=== PATIENT | female | born 1980 | race Caucasian/White ===

== ENCOUNTER 2021-01-25 09:50 | Emergency (ER) | payer SELFPAY ==
[2021-01-25] VITALS (7 sets, daily range): BP systolic 107–143; BP diastolic 67–88; PULSE 58–79; RESP 16–20; TEMP 36.8; O2SAT 96–99
--- NOTE | 2021-01-25 10:12 | CT_ITS ---
WS: [id number] CT HEAD TECHNIQUE: Noncontrast CT of the head obtained from the skullbase to the vertex. CLINICAL INFORMATION: STROKE ALERT COMPARISON: MRI/MRA and CT January 01, 2016. CT May 2015 DLP: [id number] scans at [facility] use at least one of these dose optimization techniques: automat ed exposure control; mA and/or kV adjustment per patient size (includes targeted exams where dose is matched to clinical indication); or iterative reconstruction. FINDINGS: No evidence of intracranial hemorrhage or mass effect. Ventricular system and basal cisterns are morin nt. No extra-axial fluid collections. No evidence of mass or mass effect. Normal amezcua-white different iation. Minimal incidental slightly low-lying cerebellar tonsils. Normal fourth ventricle. Mucosal thickening in the ethmoid air cells. Mastoid air cells well aerated. CT/CT head wo con* [id number] IMPRESSION: 1. No evidence of intracranial hemorrhage or mass effect. 2. Normal amezcua-white differentiation. 3. Mild mucosal thickening in the ethmoid air cells. Notified Raquel Riojas MD at 01/25/2021 10:32 AM.
--- NOTE | 2021-01-25 10:25 | ECG_ITS ---
[facility] Test Date: 2021-01-25 Pat Name: Radha Bradford Department: Room: Gender: Female Hide Curer: : 1980 Requested By: Raquel Riojas Order Number: [id number] Sadaf MD: Bayron Guerrier M.D. Measurements Intervals [place] Rate: 71 P: 49 IL: 163 QRS: 94 QRSD: 104 T: 52 QT: 390 QTc: 424 Interpretive Statements SINUS RHYTHM BORDERLINE RIGHT AXIS DEVIATION [QRS AXIS > 90] INCOMPLETE RIGHT BUNDLE BRANCH BLOCK [90+ ms QRS DURATION, TERMINAL R IN V1/V2, 40+ ms S IN I/aVL/V4/V5/V6] Compared to ECG 04/08/2018 12:35:17 Incomplete right bundle-branch block now present Sinus bradycardia no longer present Electronically Signed On 01-25-2021 23:13:28 CDT by Bayron Guerrier M.D. [id number]
[2021-01-25 10:34] LABS: Basophils # 0.1 10^3/uL (0.0-0.1); Basophils % 0.5 %; Eosinophils # 0.1 10^3/uL (0.0-0.8); Eosinophils % 1.1 %; Hematocrit 42.3 % (37.0-47.0); Lymphocytes # 2.9 10^3/uL (0.8-4.8); Lymphocytes % 27.6 %; Mean Corpuscular HGB Conc 33.1 g/dL (30.0-36.0); Mean Corpuscular Hemoglobin 27.7 pg (28.0-34.0); Mean Corpuscular Volume 83.8 fL (81-99); Mean Platelet Volume 9.5 fL (7.4-10.4); Monocytes # 0.7 10^3/uL (0.2-0.9); Monocytes % 6.5 %; Neutrophils # 6.63 10^3/uL (1.8-7.7); Neutrophils % 63.7 %; Nucleated Red Blood Cells % 0 %; Platelet Count 284 10^3/cmm (130-400); Red Blood Count 5.05 10^6/uL (4.1-5.3); Red Cell Distribution Width 12.4 % (12.1-15.1); White Blood Count 10.4 10^3/uL (4.0-10.0)
[2021-01-25 10:45] LABS: INR 0.92 (0.8-1.2)
[2021-01-25 10:47] LABS: Alanine Aminotransferase 30 U/L (0-33); Albumin Level 4.6 g/dL (3.5-5.2); Alkaline Phosphatase 66 IU/L (35-105); Anion Gap 15.6 (5-19); Aspartate Amino Transferase 17 U/L (0-32); Blood Urea Nitrogen 13 mg/dL (6-20); Calcium 9.4 mg/dL (8.5-10.5); Carbon Dioxide 24 mmol/L (22-29); Chloride 101 mmol/L (98-107); Globulin 2.1 g/dL (1.3-4.6); Glomerular Filtration Rate 93.6 mL/min (90-130); Glucose 122 mg/dL (65-115); Magnesium 1.9 mg/dL (1.7-2.3); Osmolality Calculated 285 mOsm/kg (285-295); Potassium 3.6 mmol/L (3.5-5.1); Sodium 137 mmol/L (136-145); Total Bilirubin 0.2 mg/dL (0.15-1.2); Total Protein 6.7 g/dL (6.6-8.7)
[2021-01-25 10:48] LABS: Troponin T (5th) Once 6 ng/L (0-10)
--- NOTE | 2021-01-25 11:15 | ED_ITS ---
HPI - Weakness General: Chief complaint: Weakness Stated complaint: CP Time Seen by Provider: 01/25/21 10:08 Source: patient Mode of arrival: ambulatory Limitations: no limitations History of Present Illness: HPI Narrative: 40-year-old female complaining of chest pain, paresthesias of her face, left arm, nausea, and anxiety starting at around 9 AM this morning. She was driving at the time. She has had similar symptoms in the past, says that she was diagnosed with a TIA in 2010. No fever. No cough. No palpitations. No recent GI illness, medication change, or other event. She does have a lot of stress, and historically has had more symptoms when she is under stress. No recent head or neck trauma. No cervical spine findings strain, neck manipulation, or neck pain. No tinnitus. MD Complaint: generalized weakness, numbness and tingling Onset (ago): hour(s) Duration: intermittent Associated symptoms: Reports chest pain; Denies confusion, diaphoresis, dysuria, easy bruising, fever(s), headache(s), nausea or vomiting Review of Systems General: Reports: 10 or more systems reviewed and unremarkable except in HPI and below Const: Reports: fatigue; Denies: fever(s), chills, body aches, change in appetite, change in weight or diaphoresis Eyes: Denies: change in vision or blind spots ENMT: Denies: throat pain, uvular edema or odynophagia Card: Reports: chest pain and lightheadedness; Denies: palpitations, irregular heart rhythm, edema or swelling of feet/ankles Resp: Denies: dyspnea GI: Denies: nausea or vomiting : Denies: flank pain, difficulty voiding or dysuria Musc: Reports: extremity pain; Denies: neck pain, back pain or joint pain Skin/Breast: Denies: rash, pruritus or erythema Neuro: Reports: numbness in extremities, weakness in extremities, sensory changes and dizziness; Denies: headache(s), confusion, difficulty communicating thoughts, seizure-like activity or involuntary movements Psych: Reports: anxiety, depression and panic attacks Endo: Denies: polyuria, polydipsia or tired all the time Vitaly/Lymph: Denies: easy bruising or easy bleeding All/Imm: Denies: urticaria, throat swelling or tongue swelling PFSH ED PFSH: Medical History Chronic post-traumatic stress disorder Generalized anxiety disorder Major depressive disorder, recurrent, moderate Other stressful life events affecting family and household 18 yr old daughter moved out of home, estranged relationship now Social History Smoking and tobacco status: current every day smoker cigarettes Physical Exam Const: COMMON NORMALS: patient oriented x3, no limitations, alert and well nourished GENERAL APPEARANCE: cooperative, anxious and well hydrated; not in distress, not ill appearing and not frail appearing NUTRITIONAL APPEARANCE: overweight HENMT: COMMON NORMALS: Normal external nose present FACE & SINUS: normal facial exam and face symmetric NOSE: Normal external nose present MOUTH: Normal oral and palatal mucosa present and tongue normal; no audible dysphonia and no drooling THROAT: no uvular edema Eye: COMMON NORMALS: Equal, round and reactive pupils present, EOMs intact bilaterally, conjunctivae normal and no scleral icterus GENERAL EYE: appearance normal, both eyes and all related structures CONJUNCTIVA: Yes conjunctivae normal PUPIL: Yes Equal, round and reactive pupils present Neck/C-Spine: COMMON NORMALS: full ROM, no lymphadenopathy, supple and no JVD Lymph: LYMPHATIC: no lymphadenopathy noted Resp: COMMON NORMALS: normal respiratory effort and No use of accessory muscles EFFORT & INSPECTION: Yes able to speak in complete sentences, No tachypneic, No respiratory distress, No labored and No Actively coughing Cardio: COMMON NORMALS: no JVD, regular rate, regular rhythm, S1 normal heart sound present and S2 normal heart sound present JUGULAR VENOUS DISTENTION: JVD present RATE: regular rate RHYTHM: regular rhythm HEART SOUNDS: S1 normal heart sound present and S2 normal heart sound present GI: COMMON NORMALS: Normal to inspection, nondistended, normoactive bowel sounds present, Soft to palpation, non-tender and No hepatosplenomegaly present PALPATION: Yes Soft to palpation and Yes No hepatosplenomegaly present Neuro: COMMON NORMALS: patient oriented x3 SENSORIUM/ORIENTATION: Yes alert Psych: COMMON NORMALS: mental status grossly normal, Normal thought process present, cooperative, normal affect, speech normal and activity/motor behavior normal APPEARANCE: Yes grossly normal SPEECH: Yes normal speech THOUGHT PROCESS: Normal thought process present Skin: COMMON NORMALS: no rashes or lesions noted, no wounds and turgor normal GENERAL SKIN EXAM: no rashes or lesions noted and turgor normal Course Vital Signs: Vital signs: Vital Signs Temperature 98.2 F 01/25/21 10:02 Pulse Rate 63 01/25/21 13:25 Respiratory Rate 18 01/25/21 13:25 Blood Pressure 107/67 01/25/21 13:25 Pulse Oximetry 98 01/25/21 13:25 MDM - Weakness MDM Narrative: Medical decision making narrative: 40-year-old female with pare sthesias and pain of her face, left arm, chest since this morning at 9 AM. Symptoms are slowly improving. She has had similar symptoms in the past, No acute focal deficits on exam. Head CT negative for any acute abnormalities. Discussed findings with the radiologist, who was able to see prior MRI and MRA studies which were also normal. I do not find any mention of TIA in her medical records. I discussed the case with on-call neurologist at [facility], they agreed, no TPA would be indicated given her NIH score of 0-1, and resolution of symptoms. 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 Her lab work was unremarkable-electrolytes all stable. I will refer her to neurology for follow-up. She had no development of new symptoms or worsening of existing symptoms during the period of observation here in the ED. Lab Data: Labs: Lab Results 01/25/21 01/25/21 01/25/21 Range/Units 10:05 10:05 10:05 WBC 10.4 H (4.0-10.0) 10^3/ uL RBC 5.05 (4.1-5.3) 10^6/u L Hgb 14.0 (11.5-15.3) g/dL Hct 42.3 (37.0-47.0) % MCV 83.8 (81-99) fL MCH 27.7 L (28.0-34.0) pg MCHC 33.1 (30.0-36.0) g/dL RDW 12.4 (12.1-15.1) % Plt Count 284 (130-400) 10^3/c mm MPV 9.5 (7.4-10.4) fL Neut % (Auto) 63.7 % Lymph % (Auto) 27.6 % [place] % (Auto) 6.5 % Eos % (Auto) 1.1 % Baso % (Auto) 0.5 % Neut # (Auto) 6.63 (1.8-7.7) 10^3/u L Lymph # (Auto) 2.9 (0.8-4.8) 10^3/u L [place] # (Auto) 0.7 (0.2-0.9) 10^3/u L Eos # (Auto) 0.1 (0.0-0.8) 10^3/u L Baso # (Auto) 0.1 (0.0-0.1) 10^3/u L Nucleated RBC % (a uto) 0 % Nucleated RBCs # 0.0 /100WBC PT 12.60 (12.1-14.9) SECO NDS INR 0.92 (0.8-1.2) Sodium 137 (136-145) mmol/L Potassium 3.6 (3.5-5.1) mmol/L Chloride 101 (98-107) mmol/L Carbon Dioxide 24 (22-29) mmol/L Anion Gap 15.6 (5-19) BUN 13 (6-20) mg/dL Creatinine 0.7 (0.5-0.9) mg/dL GFR Calculation 93.6 (90-130) mL/min Glucose 122 H (65-115) mg/dL POC Glucose (70-110) mg/dL Calculated Osmolal ity 285 (285-295) mOsm/k g Calcium 9.4 (8.5-10.5) mg/dL Magnesium 1.9 (1.7-2.3) mg/dL Total Bilirubin 0.2 (0.15-1.2) mg/dL AST 17 (0-32) U/L ALT 30 (0-33) U/L Alkaline Phosphata se 66 (35-105) IU/L Troponin T Gen 5 n g/L (0-10) ng/L Total Protein 6.7 (6.6-8.7) g/dL Albumin 4.6 (3.5-5.2) g/dL Globulin 2.1 (1.3-4.6) g/dL Urine Color (Yellow) Urine Appearance (CLEAR) Urine pH (5-7) Ur Specific Gravit y (1.005-1.030) Urine Protein (Negative) Urine Glucose (UA) (Normal) Urine Ketones (Negative) Urine Blood (Negative) Urine Nitrate (Negative) Urine Bilirubin (Negative) Urine Urobilinogen (Negative) mg/dL Ur Leukocyte Zaria ase (Negative) Urine RBC (0-2) /hpf Urine WBC (0-5) /hpf Ur Squamous Epith Cells (0-5) /hpf Amorphous Sediment Urine Bacteria (NONE) /hpf 01/25/21 01/25/21 01/25/21 Range/Units 10:05 10:06 11:20 WBC (4.0-10.0) 10^3/ uL RBC (4.1-5.3) 10^6/u L Hgb (11.5-15.3) g/dL Hct (37.0-47.0) % MCV (81-99) fL MCH (28.0-34.0) pg MCHC (30.0-36.0) g/dL RDW (12.1-15.1) % Plt Count (130-400) 10^3/c mm MPV (7.4-10.4) fL Neut % (Auto) % Lymph % (Auto) % [place] % (Auto) % Eos % (Auto) % Baso % (Auto) % Neut # (Auto) (1.8-7.7) 10^3/u L Lymph # (Auto) (0.8-4.8) 10^3/u L [place] # (Auto) (0.2-0.9) 10^3/u L Eos # (Auto) (0.0-0.8) 10^3/u L Baso # (Auto) (0.0-0.1) 10^3/u L Nucleated RBC % (a uto) % Nucleated RBCs # /100WBC PT (12.1-14.9) SECO NDS INR (0.8-1.2) Sodium (136-145) mmol/L Potassium (3.5-5.1) mmol/L Chloride (98-107) mmol/L Carbon Dioxide (22-29) mmol/L Anion Gap (5-19) BUN (6-20) mg/dL Creatinine (0.5-0.9) mg/dL GFR Calculation (90-130) mL/min Glucose (65-115) mg/dL POC Glucose 129 H (70-110) mg/dL Calculated Osmolal ity (285-295) mOsm/k g Calcium (8.5-10.5) mg/dL Magnesium (1.7-2.3) mg/dL Total Bilirubin (0.15-1.2) mg/dL AST (0-32) U/L ALT (0-33) U/L Alkaline Phosphata se (35-105) IU/L Troponin T Gen 5 n g/L 6 (0-10) ng/L Total Protein (6.6-8.7) g/dL Albumin (3.5-5.2) g/dL Globulin (1.3-4.6) g/dL Urine Color Yellow (Yellow) Urine Appearance Clear (CLEAR) Urine pH 5 (5-7) Ur Specific Gravit y 1.020 (1.005-1.030) Urine Protein Neg (Negative) Urine Glucose (UA) Norm (Normal) Urine Ketones Negative (Negative) Urine Blood 2+ H (Negative) Urine Nitrate Negative (Negative) Urine Bilirubin Neg (Negative) Urine Urobilinogen Norm (Negative) mg/dL Ur Leukocyte Zaria ase Negative (Negative) Urine RBC 5-10 H (0-2) /hpf Urine WBC None (0-5) /hpf Ur Squamous Epith Cells 0-4 H (0-5) /hpf Amorphous Sediment Not Reportable Urine Bacteria 1+ H (NONE) /hpf Discharge Plan Discharge Patient Disposition: Home Clinical Impression: Paresthesia of left arm, Facial paresthesia, Stroke-like symptom Condition: Stable Prescriptions: No Action simvastatin 10 mg tablet 10 mg PO BEDTIME RF: 0 hydrochlorothiazide 25 mg tablet 25 mg PO BEDTIME RF: 0 losartan 50 mg Tablet 50 mg PO BEDTIME RF: 0 metformin 1,000 mg Tablet See Rx Instructions .ROUTE .COMPLEX RF: 0 Paxil 20 mg tablet 20 mg PO BEDTIME RF: 0 Abilify 2 mg tablet 1 mg PO QAM RF: 0 Discharge Orders: Discharge ED (Routine); Ordered 01/25/21 Ordered By: Raquel Riojas Referrals: Alison Witt MD [Physician] - (ER f/up, TIA-like sx, recurrent, neg w/up) Little Murillo FNP [Primary Care Provider] - Discharge Diet: Advance as tolerated Discharge Activity: Resume usual activity Patient Instructions: Paresthesia (ED) Activity Restrictions/Additional Instructions: Follow-up with your primary care doctor in the next 3 to 5 days to make sure your symptoms are improving. Return immediately to the ER if you have severe headache, vision changes, Coding Level of Care Code ED Human Resources Executive Assistant for Denia Coppola
[2021-01-25 11:35] LABS: Add Urine Microscopic? YES; Bilirubin Urine Neg (Negative); Blood Urine 2+ (Negative); Glucose Urine UA Norm (Normal); Ketones Urine Negative (Negative); Leukocyte Esterase Urine Negative (Negative); Nitrate Urine Negative (Negative); Protein Urine Neg (Negative); Urine Appearance Clear (CLEAR); Urine Color Yellow (Yellow); Urobilinogen Urine Norm (Negative); pH Urine 5 (5-7)
[2021-01-25 11:39] LABS: Add Urine Culture? No; Bacteria Urine 1+ /hpf; Squamous Epithelial Cell Urine 0-4 /hpf (0-5)
[2021-01-26 00:19] LABS: Glucose Point of Care 129 mg/dL (70-110)
== END 2021-01-25 13:26 | disposition home or self-care (01) ==
PROVIDERS: Emergency Provider Family Medicine; PCP Nurse Practitioner Family
DX: R20.2 Paresthesia of skin (principal); F17.210 Nicotine dependence, cigarettes, uncomplicated
CPT/HCPCS: 36416; 70450; 80053; 81001; 82962; 83735; 84484; 85025; 85610; 93005; 99284

== ENCOUNTER 2021-03-20 08:01 | Outpatient (CLI) | payer SELFPAY ==
--- NOTE | 2021-03-20 08:06 | MR_ITS ---
WS: [id number] MRI BRAIN WITH AND WITHOUT CONTRAST HISTORY: NUMBNESS AND TINGLING LEFT ARM AND LEG COMPARISON: 01/24/2016 TECHNIQUE: Multiplanar imaging performed through the brain with MultiHance 20 ml's IV. No acute infarcts are seen. Pineda-white matter differentiation is well preserved. No demyelinating les ions associated with the pericallosal white matter. No susceptibility artifacts or prior lacunar infarcts. Ventricles and extra-axial spaces are normal. Clivus and pituitary gland are normal. Visualized posterior fossa and brainstem are also normal. Postcontrast images are negative for masses or vascular malformations. Dural venous sinuses are normal. Paranasal sinuses: Mild mucoperiosteal thickening in the ethmoid air cells. Mastoid air cells: Normal. Calvarium and scalp: Normal. MR/MR head wo/w con [id number] IMPRESSION: 1. No enhancing masses or acute infarcts. 2. No signal abnormalities to suggest demyelinating disease.
[2021-03-20] MEDS: gadobenate dimeglumine 20 mL vial IV (13:37)
== END 2021-03-20 08:02 | disposition home or self-care (01) ==
LOC: RADSHAW 08:04
PROVIDERS: PCP Nurse Practitioner Family; Visit Provider Family Medicine
DX: R20.0 Anesthesia of skin (principal); R20.2 Paresthesia of skin
CPT/HCPCS: 70553; A9577

== ENCOUNTER → 2021-06-11 09:54 | Outpatient (BNVA) | payer SELFPAY | PROVIDERS: PCP Nurse Practitioner Family; Referring Provider Nurse Practitioner Family; Visit Provider Orthopaedic Surgery | DX: M54.2 Cervicalgia (principal); M48.02 Spinal stenosis, cervical region | CPT/HCPCS: 72050 ==

== ENCOUNTER 2021-06-12 12:35 | Outpatient (CLI) | payer SELFPAY ==
--- NOTE | 2021-06-12 13:00 | MR_ITS ---
WS: [id number] MRI CERVICAL SPINE NONCONTRAST HISTORY: M48.02 - Spinal stenosis, cervical region COMPARISON: None available. Technique: Multiplanar, multisequence noncontrast imaging of the cervical spine. Very minimal straightening of the normal upper cervical lordosis. No marrow edema or fracture. Small endplate osteophytes at all levels in the cervical spine with mild disc space narrowing and lazara iccation. Vertebral body osteophytes and disc encroachment upon the ventral thecal sac most significa nt from C3-4 to C5-6. No signal abnormality within the cord or brainstem. Craniocervical junction, C1 and C2 relationship, odontoid process and soft tissues are normal. C2-C3: Normal. C3-C4: Mild osteophytic ridging. No focal disc protrusion. Very slight contact on the ventral cervica l cord. No displacement of the cord. C4-C5: Very slight annular disc bulging and osteophytic ridging. No displacement of the cord. C5-C6: Bilateral disc osteophyte complexes and paracentral locations with mild deformity and narrowin g of the proximal foramen. There is very slight contact upon the ventral thecal sac. Mild central and bilateral foraminal stenosis. C6-C7: Moderate-sized LEFT paracentral and proximal foraminal disc osteophyte. Protrusion is causing mild deformity of the LEFT lateral thecal sac and displacement of the nerve roots. Very mild central and LEFT foraminal narrowing. C7-T1: Normal. Paraspinal soft tissue are normal. MR/MR cervical spin wo con* [id number] IMPRESSION: 1. Disc osteophyte contact on the central thecal sac and causing mild narrowin g of the foramina at C5-6. Bilateral paracentral disc osteophyte complexes, RIG HT greater than LEFT. 2. Moderate-sized LEFT paracentral and proximal foraminal disc osteophyte at C 6-7 with mild contact and deformity LEFT lateral thecal sac. Mild central and L EFT foraminal narrowing. 3. Osteophytic ridging and disc disease at C3-4 and C4-5 with mild encroachmen t upon the ventral thecal sac and no displacement.
== END 2021-06-12 12:36 | disposition home or self-care (01) ==
LOC: RADSHAW 12:39
PROVIDERS: PCP Nurse Practitioner Family; Visit Provider Orthopaedic Surgery
DX: M48.02 Spinal stenosis, cervical region (principal); M25.78 Osteophyte, vertebrae
CPT/HCPCS: 72141

== ENCOUNTER → 2021-06-26 08:34 | Outpatient (BNVA) | payer SELFPAY | PROVIDERS: PCP Nurse Practitioner Family; Referring Provider Orthopaedic Surgery; Visit Provider Anesthesiology Pain Medicine | DX: M48.02 Spinal stenosis, cervical region (principal); M54.12 Radiculopathy, cervical region; M54.5 Low back pain; F17.210 Nicotine dependence, cigarettes, uncomplicated | CPT/HCPCS: 99205 ==

== ENCOUNTER → 2021-07-03 14:04 | Outpatient (BNVA) | payer SELFPAY | PROVIDERS: PCP Nurse Practitioner Family; Visit Provider Anesthesiology Pain Medicine | DX: Z01.812 Encounter for preprocedural laboratory examination (principal); E11.9 Type 2 diabetes mellitus without complications; G89.29 Other chronic pain; M54.12 Radiculopathy, cervical region | CPT/HCPCS: 36416; 62321; 82962; J1100 ==

== ENCOUNTER → 2022-04-23 09:30 | Outpatient (BNVA) | payer OTHER, SELFPAY | PROVIDERS: PCP Nurse Practitioner Family; Visit Provider Nurse Practitioner Psychiatric/Mental Health | DX: Z79.899 Other long term (current) drug therapy (principal) | CPT/HCPCS: 80053; 80061; 83036 ==

== ENCOUNTER 2023-01-26 06:00 | Outpatient (RCR) | payer MEDICAID, SELFPAY | END 2023-02-06 23:59 | disposition home or self-care (01) | LOC: SPT 06:00 | PROVIDERS: Visit Provider Psychiatry & Neurology Neurology | DX: M54.2 Cervicalgia (principal); G89.29 Other chronic pain | CPT/HCPCS: 97012; 97035; 97110; 97161 ==

== ENCOUNTER 2023-02-07 06:00 | Outpatient (RCR) | payer MEDICAID, SELFPAY | END 2023-03-08 23:59 | disposition home or self-care (01) | LOC: SPT 06:00 | PROVIDERS: Visit Provider Psychiatry & Neurology Neurology | DX: G89.29 Other chronic pain (principal); M54.50 Low back pain, unspecified | CPT/HCPCS: 97012; 97035; 97110 ==

== ENCOUNTER 2023-02-09 12:38 | Outpatient (RCR) | payer MEDICAID, SELFPAY | END 2023-03-04 23:59 | disposition home or self-care (01) | LOC: SPT 12:38 | PROVIDERS: Visit Provider Physician Assistant | DX: G89.29 Other chronic pain (principal); M54.50 Low back pain, unspecified | CPT/HCPCS: 97110; 97161; G0283 ==

== ENCOUNTER 2023-03-09 06:00 | Outpatient (RCR) | payer MEDICAID, SELFPAY | END 2023-04-08 23:59 | disposition home or self-care (01) | LOC: SPT 06:00 | PROVIDERS: Visit Provider Physician Assistant | DX: M54.50 Low back pain, unspecified (principal); G89.29 Other chronic pain | CPT/HCPCS: 97110; G0283 ==

== ENCOUNTER 2023-04-09 06:00 | Outpatient (RCR) | payer MEDICAID, SELFPAY | END 2023-04-14 23:59 | disposition home or self-care (01) | LOC: SPT 06:00 | PROVIDERS: Visit Provider Physician Assistant | DX: M54.50 Low back pain, unspecified (principal); G89.29 Other chronic pain | CPT/HCPCS: 97110 ==

== ENCOUNTER 2024-02-11 08:43 | Outpatient (CLI) | payer MEDICAID, SELFPAY ==
--- NOTE | 2024-02-11 08:47 | MM_ITS ---
WS: [id number] BILATERAL 3D TOMOSYNTHESIS DIGITAL DIAGNOSTIC MAMMOGRAPHY WITH CAD CLINICAL INFORMATION: LEFT BR LUMP AND DISCHARGE HISTORY: Palpable lump LEFT breast and discharge COMPARISON: Baseline TECHNIQUE: Bilateral CC, MLO, and ML views. FINDINGS: The breasts are composed of heterogeneous fibroglandular density, which can limit the detection of sm all underlying mass lesions. Incidental punctate and lucent centered calcifications. Palpable marker LEFT breast with dense tissue deep to the palpable marker. Ultrasound is pending. Nodular ovoid densi ties upper outer LEFT breast. Ultrasound is pending of this area. RIGHT breast is unremarkable. ULTRASOUND BREAST LEFT TECHNIQUE: Ultrasound left breast focused area of concern. CLINICAL INFORMATION: LEFT BR LUMP AND DISCHARGE FINDINGS: Ultrasound LEFT breast in the area of palpable concern upper outer quadrant. Deep to the palpable mar ker is a well-circumscribed ovoid hypoechoic lesion most compatible with fibroadenoma measuring 2.1 x 1.3 x 2.4 cm 1 o'clock position 3 cm from the nipple. Adjacent cysts the largest measuring 2.5 x 1.8 x 2.7 cm in the area of palpable concern. Additional a djacent smaller cyst measuring 1.0 x 1.3 cm. Incidental ductal ectasia deep to the nipple. IMPRESSION: MM/[place] [id number] BI-RADS: 3-Probably Benign FOLLOW UP: 6 Month Follow-up Recommend 6-month follow-up LEFT breast diagnostic mammography and ultrasound t o confirm stability of the suspected fibroadenoma. Alternatively this could be further evaluated with ultrasound-guided biopsy for definitive diagnosis if patient preference
== END 2024-02-11 08:44 | disposition home or self-care (01) ==
LOC: RAD 08:44
PROVIDERS: PCP Nurse Practitioner Family; Visit Provider Family Medicine
DX: N64.52 Nipple discharge (principal); N63.21 Unspecified lump in the left breast, upper outer quadrant; N60.02 Solitary cyst of left breast
CPT/HCPCS: 76642; 77062; G0279

== ENCOUNTER 2024-03-16 10:44 | Outpatient (CLI) | payer MEDICAID, SELFPAY ==
--- NOTE | 2024-03-16 10:47 | US_ITS ---
WS: [id number] ULTRASOUND-GUIDED LEFT BREAST BIOPSY CLINICAL INFORMATION: L BREAST LUMP/MASS COMPARISON: 02/11/2024 FINDINGS: The procedure including risks, benefits, and complications were discussed with the patient who agreed to proceed. Using sterile technique patient was prepped and draped in the usual sterile fashion. Aft er 1% lidocaine utilizing real-time ultrasound guidance 5 14-gauge cores were obtained of the LEFT br east lesion at the 1:00 o'clock position 3 cm from the nipple. Subsequently a titanium clip was place d in the biopsy cavity. No immediate complications. Pathology demonstrates Fragmented fibroepithelial lesion. No microcalcifications are identified. No malignancy identified. US/[place] [id number] IMPRESSION: 1. Uncomplicated ultrasound-guided LEFT breast biopsy. 2. The pathology demonstrates fibroepithelial lesion. No evidence of malignanc y. 3. Recommend 12-month LEFT breast diagnostic mammography with ultrasound at th e time of annual screening to confirm stability. BI-RADS: 2-Benign FOLLOW UP: 1 Year Follow-up
== END 2024-03-16 10:45 | disposition home or self-care (01) ==
LOC: RAD 10:45
PROVIDERS: PCP Nurse Practitioner Family; Visit Provider Family Medicine
DX: N63.20 Unspecified lump in the left breast, unspecified quadrant (principal); N60.22 Fibroadenosis of left breast
CPT/HCPCS: 19083; 88305

== ENCOUNTER 2025-01-26 08:09 | Outpatient (CLI) | payer MEDICAID, SELFPAY ==
--- NOTE | 2025-01-26 08:11 | MM_ITS ---
WS: [id number] BILATERAL 3D TOMOSYNTHESIS DIGITAL DIAGNOSTIC MAMMOGRAPHY WITH CAD CLINICAL INFORMATION: L NIPPLE DISCHARGE/MASS IN BREAST HISTORY: New LEFT breast lump COMPARISON: 2023 TECHNIQUE: Bilateral CC, MLO, and ML views. FINDINGS: The breasts are composed of heterogeneous fibroglandular density, which can limit the detection of small underlying mass lesions. LEFT breast biopsy clip. Dense parenchymal tissue with small nodular densities deep to the palpable markers. Ultrasound of this area is pending. RIGHT breast is unchanged with incidental punctate and lucent centered calcifications. ULTRASOUND BREAST LEFT TECHNIQUE: Ultrasound left breast focused area of concern. CLINICAL INFORMATION: L NIPPLE DISCHARGE/MASS IN BREAST FINDINGS: Ultrasound LEFT breast area of concern. At the 1 o'clock position is the previously biopsied fibroadenoma 3 cm from the nipple measuring 2.5 x 2.3 cm unchanged with associated biopsy clip. Additional lobulated surrounding simple cysts. The largest measures 2.6 x 2.9 x 2.1 cm. Additional simple cyst measuring 1.6 x 1.7 x 1.3 cm. No suspicious lesions to target for biopsy. The cysts correspond to the palpable abnormalities Recommend return to annual screening mammography MM/MM diag BI tomosynthesis [id number] DENSITY: The breasts are heterogeneously dense, which may obscure small masses. BI-RADS: 2 - Benign FOLLOW UP: See Report Recommend return to annual screening mammography.
--- NOTE | 2025-01-26 08:53 | US_ITS ---
WS: [id number] BILATERAL 3D TOMOSYNTHESIS DIGITAL DIAGNOSTIC MAMMOGRAPHY WITH CAD CLINICAL INFORMATION: L NIPPLE DISCHARGE/MASS IN BREAST HISTORY: New LEFT breast lump COMPARISON: 2023 TECHNIQUE: Bilateral CC, MLO, and ML views. FINDINGS: The breasts are composed of heterogeneous fibroglandular density, which can limit the detection of small underlying mass lesions. LEFT breast biopsy clip. Dense parenchymal tissue with small nodular densities deep to the palpable markers. Ultrasound of this area is pending. RIGHT breast is unchanged with incidental punctate and lucent centered calcifications. ULTRASOUND BREAST LEFT TECHNIQUE: Ultrasound left breast focused area of concern. CLINICAL INFORMATION: L NIPPLE DISCHARGE/MASS IN BREAST FINDINGS: Ultrasound LEFT breast area of concern. At the 1 o'clock position is the previously biopsied fibroadenoma 3 cm from the nipple measuring 2.5 x 2.3 cm unchanged with associated biopsy clip. Additional lobulated surrounding simple cysts. The largest measures 2.6 x 2.9 x 2.1 cm. Additional simple cyst measuring 1.6 x 1.7 x 1.3 cm. No suspicious lesions to target for biopsy. The cysts correspond to the palpable abnormalities Recommend return to annual screening mammography US/US breast LT limited* [id number] DENSITY: The breasts are heterogeneously dense, which may obscure small masses. BI-RADS: 2 - Benign FOLLOW UP: See Report Recommend return to annual screening mammography.
== END 2025-01-26 08:10 | disposition home or self-care (01) ==
PROVIDERS: Visit Provider Family Medicine
DX: N64.52 Nipple discharge (principal); R92.323 Mammographic fibroglandular density, bilateral breasts; R92.1 Mammographic calcification found on diagnostic imaging of breast; D24.2 Benign neoplasm of left breast; N60.12 Diffuse cystic mastopathy of left breast
CPT/HCPCS: 76642; 77062; G0279

== ENCOUNTER 2025-08-15 15:25 | Outpatient (CLI) | payer BC, SELFPAY ==
--- NOTE | 2025-08-15 15:47 | XR_ITS ---
WS: [id number] Lateral views of cervical spine in the flexion, extension and neutral positions. 08/15/2025 Clinical Data: CHRONIC NECK PAIN Comparison: Cervical spine, 06/11/2021 Findings: There are calcifications of the anterior longitudinal ligament at C4-C5, C5-C6 and C6-C7. No prevertebral soft tissue swelling is present. No instability occurs on flexion or extension. XR/XR cervical spine fl/ex [id number] Impression: 1. Minimal calcifications of the anterior longitudinal ligament at multiple lev els. 2. No instability on flexion or extension.
--- NOTE | 2025-08-15 15:47 | XR_ITS ---
WS: [id number] Left shoulder, 2 views, 08/15/2025 Clinical Data: LEFT SHOULDER PAIN Comparison: None. Findings: No fractures or dislocations are seen. The AC joint is normal. The adjacent left clavicle, left scapula and ribs are normal. The soft tissues are unremarkable. XR/XR shoulder LT min 2V* [id number] Impression: Negative left shoulder.
== END 2025-08-15 15:26 | disposition home or self-care (01) ==
PROVIDERS: PCP Nurse Practitioner Family; Visit Provider Nurse Practitioner Family
DX: M54.2 Cervicalgia (principal); M25.512 Pain in left shoulder
CPT/HCPCS: 72040; 73030